=== PATIENT | female | born 2000 | race American Indian/Alaskan Native ===

== ENCOUNTER 2018-09-03 15:20 | Emergency (ER) | payer OTHER ==
[2018-09-03 15:26] VITALS: BP 142/100
--- NOTE | 2018-09-03 15:26 | Emergency Department Report ---
Blank Doc - Documentation Documentation: Patient reports 05/04 sore throat that started yesterday. She has tried Mucinex and Thera-flu, however symptoms continue to persist
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
--- NOTE | 2018-09-03 16:18 | Emergency Department Report ---
- General Chief Complaint: Sore Throat Stated Complaint: SORE THROAT Time Seen by Provider: 09/03/18 16:05 Source: patient Mode of arrival: Ambulatory Limitations: No Limitations - History of Present Illness Initial Comments: Patient is a 18-year-old female that presents emergency room with complaints of sore throat and right ear pain. Patient states that the pain started 24 hours ago and is worsening. Patient states the pain is tender tender nonradiating. Patient states it hurts to swallow. Patient denies nausea vomiting. Patient denies fever or chills. Patient denies cough MD Complaint: sore throat -: Sudden Severity: severe Severity scale (0 -10): 10 Consistency: constant Improves With: NSAID, rest Worsens With: other (swallowing) Context: sick contacts Associated Symptoms: sore throat, ear pain. denies: fever, chills, myalgias, diaphoresis, headache, rhinorrhea, nasal congestion, stiff neck, cough, chest pain, shortness of breath, abdominal pain, nausea, vomiting, diarrhea, dysuria, rash, confusion, right sweats, weight loss, epistaxis, hoarseness Treatments Prior to Arrival: Acetaminophen - Related Data Previous Rx's Medication Instructions Recorded Last Taken Type Amoxicillin/Potassium Clav 1 each PO BID 10 Days #20 tablet 09/03/18 Unknown Rx [Augmentin 875-125 Tablet] methylPREDNISolone [Medrol] 4 mg PO DAILY 6 Days #1 tab.ds.pk 09/03/18 Unknown Rx Allergies Allergy/AdvReac Type Severity Reaction Status Date / Time No Known Allergies Allergy Verified 09/03/18 15:23 ED Review of Systems ROS: Stated complaint: SORE THROAT Other details as noted in HPI Constitutional: denies: chills, fever Eyes: denies: eye pain, eye discharge, vision change ENT: ear pain, throat pain Respiratory: denies: cough, shortness of breath, wheezing Cardiovascular: denies: chest pain, palpitations Endocrine: no symptoms reported Gastrointestinal: denies: abdominal pain, nausea, diarrhea Genitourinary: denies: urgency, dysuria, discharge Musculoskeletal: denies: back pain, joint swelling, arthralgia Skin: denies: rash, lesions Neurological: denies: headache, weakness, paresthesias Psychiatric: denies: anxiety, depression Hematological/Lymphatic: denies: easy bleeding, easy bruising ED Past Medical Hx - Past Medical History Previous Medical History?: No - Surgical History Past Surgical History?: No - Family History Family history: no significant - Social History Smoking Status: Current Every Day Smoker Substance Use Type: None - Medications Home Medications: Home Medications Medication Instructions Recorded Confirmed Last Taken Type Amoxicillin/Potassium Clav 1 each PO BID 10 Days #20 tablet 09/03/18 Unknown Rx [Augmentin 875-125 Tablet] methylPREDNISolone [Medrol] 4 mg PO DAILY 6 Days #1 tab.ds.pk 09/03/18 Unknown Rx ED Physical Exam - General Limitations: No Limitations General appearance: alert, in no apparent distress - Head Head exam: Present: atraumatic, normocephalic - Eye Eye exam: Present: normal appearance - ENT ENT exam: Present: mucous membranes moist, TM's normal bilaterally - Expanded ENT Exam Expanded Throat exam: Positive: tonsillar erythema, tonsillomegaly, tonsillar exudate. Negative: R peritonsillar mass, L peritonsillar mass - Neck Neck exam: Present: normal inspection - Respiratory Respiratory exam: Present: normal lung sounds bilaterally. Absent: respiratory distress - Cardiovascular Cardiovascular Exam: Present: regular rate, normal rhythm. Absent: systolic murmur, diastolic murmur, rubs, gallop - GI/Abdominal GI/Abdominal exam: Present: soft, normal bowel sounds - Extremities Exam Extremities exam: Present: normal inspection - Back Exam Back exam: Present: normal inspection - Neurological Exam Neurological exam: Present: alert, oriented X3 - Psychiatric Psychiatric exam: Present: normal affect, normal mood - Skin Skin exam: Present: warm, dry, intact, normal color. Absent: rash ED Course Vital Signs 09/03/18 15:24 Temperature 97.6 F Pulse Rate 113 H Respiratory 16 Rate Blood Pressure 142/100 O2 Sat by Pulse 100 Oximetry - Reevaluation(s) Reevaluation #1: Initial evaluation done. Patient's clinical findings warrant a CBC, strep and mono test.. 09/03/18 16:04 Discussed all results with patient. Patient is positive for strep. Patient given discharge instructions. Patient given strep throat instructions. Patient given return to ER instructions. Patient voiced understanding of all i nstructions. She agrees to plan of care. Patient is stable for discharge. Patient be discharged home 09/03/18 17:40 ED Medical Decision Making - Lab Data Result diagrams: 09/03/18 16:38 - Medical Decision Making Patient is a 18-year-old female that presents emergency room with complaints of throat pain. Patient found to have strep throat. Patient's mono negative. Patient's WBC elevated. Patient also found to have tonsillitis without a tonsillar abscess. Patient will be given Bicillin to increase comfort and treat strep throat. Patient will also be given a follow-up Augmentin due to the a mount of tonsillar swelling. Patient will also be given steroids pack for the tonsillar swelling. Patient stable for discharge. Patient was discharged home. Patient given all strep throat precautions and instructions - Differential Diagnosis strep throat. URI. Tonsillitis. Terrell Critical care attestation.: If time is entered above; I have spent that time in minutes in the direct care of this critically ill patient, excluding procedure time. ED Disposition Clinical Impression: Acute bacterial tonsillitis, Strep pharyngitis, Sore throat Disposition: TO HOME OR SELFCARE Is pt being admited?: No Does the pt Need Aspirin: No Condition: Stable Instructions: Strep Throat (ED), Tonsillitis (ED) Additional Instructions: Patient to follow up with primary care in 2-3 days. Patient to return to the condition worsens. Patient increase water. Patient's respiratory patient to take Tylenol or ibuprofen when necessary for pain. Patient take all medicines as directed. Prescriptions: Amoxicillin/Potassium Clav [Augmentin 875-125 Tablet] 1 each PO BID 10 Days #20 tablet methylPREDNISolone [Medrol] 4 mg PO DAILY 6 Days #1 tab.ds.pk Referrals: BRANDON KERR MD [Primary Care Provider] - 2-3 Days Time of Disposition: 17:40
[2018-09-03 17:14] LABS: Hematocrit 36.7 % (30.3-42.9); Hemoglobin 12.1 gm/dl (10.1-14.3); Mean Corpuscular HGB Conc 33 % (30-34); Mean Corpuscular Volume 92 fl (79-97); Platelet Count 340 K/mm3 (140-440); Red Blood Count 3.98 M/mm3 (3.65-5.03); Red Cell Distribution Width 13.7 % (13.2-15.2)
[2018-09-03] MEDS ORDERED: SOLU-Medrol IM ONE (17:38)
[2018-09-03] MEDS ORDERED: BICILLIN L-A IM ONE (17:38)
[2018-09-03 18:27] LABS: Band Neutrophils # (Manual) 1.6 K/mm3; Basophils % (Manual) 0 % (0.0-1.8); Eosinophils % (Manual) 0 % (0.0-4.3); Total Cells Counted 100
[2018-09-03 18:29] LABS: RBC Morphology Normal
== END 2018-09-03 18:15 | disposition home or self-care (01) ==
LOC: ED 15:20
DX: J03.90 Acute tonsillitis, unspecified (principal); J02.0 Streptococcal pharyngitis; F17.200 Nicotine dependence, unspecified, uncomplicated
CPT/HCPCS: 36415; 85007; 85025; 86308; 87430; 96372; 99283; J0561; J2930